=== PATIENT | male | born 1980 | race Caucasian/White ===

== ENCOUNTER → 2021-05-13 | Day surgery (SDC) | payer BC ==
[~2021-05-13] VITALS: Ht 167.6 cm; Wt 104.3 kg
[~2021-05-13] MED LIST: BACTRIM DS 8001 TAB PO; FLOMAX 0.40.4 MG/CAP PO; LIORESAL20 MG PO; LIPITOR 10MG10 MG PO; LIPITOR20 MG PO; NORFLEX 30M30 MG/AMP IJ; PEPCID40 MG PO; PERCOCET 325 MG1 TAB PO; TORADOL IN60 MG/2 ML IM; VALIUM 10MG10 MG/TAB PO
[2021-05-13 11:03] VITALS: BP 121/68; PULSE 85; TEMP 98.7
[2021-05-13 13:32] VITALS: BP 129/69; PULSE 77; TEMP 98.2
--- NOTE | 2021-05-13 13:32 | NUR ---
Pt returns to [facility] from PACU, awake and alert. VSS. Denies pain or nausea, water provided and pt up to the bathroom and voids without difficulty. Call light in reach.
[2021-05-13 13:47] VITALS: BP 116/74; PULSE 76
--- NOTE | 2021-05-13 13:47 | NUR ---
Pt asking to go home. Dad brought to bedside. Discharge instructions provided, pt educated on ureteral stent pull in 36 hours and understanding verbalized. Pt tolerates a muffin well. IV discontinued and pt taken out via wheelchair at 1415 and left in care of his dad.
[2021-05-13 14:07] VITALS: BP 114/58; PULSE 79; TEMP 98.1
== END ==
LOC: SDCO 09:50
DX: N20.1 Calculus of ureter (principal); I10 Essential (primary) hypertension; E78.5 Hyperlipidemia, unspecified; K21.9 Gastro-esophageal reflux disease without esophagitis; G89.29 Other chronic pain; M54.9 Dorsalgia, unspecified; F41.9 Anxiety disorder, unspecified; Z79.899 Other long term (current) drug therapy; Z87.891 Personal history of nicotine dependence
CPT/HCPCS: C1769; C1894; C2617; J0690; J1100; J2405; J2704; J3010; Q9967